=== PATIENT | male | born 1980 | race Caucasian/White ===

== ENCOUNTER → 2020-12-27 | Outpatient (CLI) | payer BC ==
[2020-12-27 19:13] LABS: SYNOVIAL FL. MONONUCLEAR 29.4 % (0-75); SYNOVIAL FLUID RBC 4000 /mm3 (0-0); SYNOVIAL FLUID WBC 5074 /mm3 (200-600)
[2020-12-27 19:14] LABS: SYNOVIAL FLUID APPEARANCE CLOUDY; SYNOVIAL FLUID COLOR YELLOW
== END ==
LOC: ZCOL.LAB 17:24
PROVIDERS: Orthopaedic Surgery Sports Medicine
DX: Z01.89 Encounter for other specified special examinations (principal)